=== PATIENT | male | born 1960 | race Caucasian/White ===

== ENCOUNTER 2018-07-08 11:12 | Emergency (ER) | payer OTHER ==
--- NOTE | 2018-07-08 12:21 | ED Physician Documentation ---
PD HPI LOWER EXT INJURY - Stated complaint Stated Complaint: RT LEG SWELLING - Chief complaint Chief Complaint: Ext Problem - History obtained from History obtained from: Patient - History of Present Illness PD HPI LOW EXT INJURY LOCATION: Right (He had a quick plane trip to [facility] on business and on he had a swollen painful slightly warm right leg up to the mid/lower hamstring. He denies any chest pain or trouble breathing. No history of DVT or PE.) Review of Systems Cardiac: denies: Chest pain / pressure Respiratory: denies: Dyspnea, Cough Musculoskeletal: reports: Extremity pain, Extremity swelling PD PAST MEDICAL HISTORY - Past Medical History Past Medical History: No - Past Surgical History Past Surgical History: No - Present Medications Home Medications: Ambulatory Orders Medication Instructions Recorded Confirmed Rivaroxaban [Xarelto] 15 mg PO BID #42 tablet 07/08/18 Zolpidem Tartrate [Ambien] 1 tab PO DAILY PM PRN 07/08/18 07/08/18 - Allergies Allergies/Adverse Reactions: Allergies Allergy/AdvReac Type Severity Reaction Status Date / Time No Known Drug Allergies Allergy Verified 07/08/18 11:29 - Social History Does the pt smoke?: No Smoking Status: Never smoker Does the pt drink ETOH?: Yes Does the pt have substance abuse?: No Substance Use and Type: Marijuana - Immunizations Immunizations are current?: Yes - POLST Patient has POLST: No PD ED PE NORMAL - Vitals Vital signs reviewed: Yes - General General: Alert and oriented X 3, No acute distress - Extremities Extremities: Other (He does have modest edema that is asymmetric of the right leg with some pitting to the ankle. Good range of motion, normal perfusion.) - Neuro Neuro: Alert and oriented X 3, Normal speech Results - Vitals Vitals: Vital Signs - 24 hr 07/08/18 11:26 Temperature 36.5 C Heart Rate 66 Respiratory 16 Rate Blood Pressure 132/86 H O2 Saturation 99 Oxygen O2 Source Room air - Labs Labs: Laboratory Tests 07/08/18 07/08/18 07/08/18 12:50 12:50 12:50 WBC 6.8 RBC 4.84 Hgb 13.8 L Hct 40.8 L MCV 84.3 MCH 28.6 MCHC 34.0 RDW 12.9 Plt Count 132 MPV 9.0 Neut # (Auto) 3.5 Lymph # (Auto) 2.0 Craven # (Auto) 0.8 Eos # (Auto) 0.4 Baso # (Auto) 0.1 Absolute Nucleated RBC 0.00 Nucleated RBC % 0.1 PT 11.9 INR 1.1 Sodium 136 Potassium 4.3 Chloride 101 Carbon Dioxide 28 Anion Gap 7.0 BUN 16 Creatinine 0.8 Estimated GFR (MDRD) 100 Glucose 101 H Calcium 9.1 - Rads (name of study) RLE duplex Radiology: EMP read contemporaneously (pos for DVT) PD MEDICAL DECISION MAKING - ED course ED course: 57-year-old gentleman with first DVT after flying. I discussed the case with the physician on-call for his who recommended a NOAC of my choice. - Sepsis Event Vital Signs: Vital Signs - 24 hr 07/08/18 11:26 Temperature 36.5 C Heart Rate 66 Respiratory 16 Rate Blood Pressure 132/86 H O2 Saturation 99 Oxygen O2 Source Room air Departure - Departure Disposition: 01 Home, Self Care Clinical Impression: Deep vein thrombosis Qualifiers: DVT location: lower extremity Affected thrombotic vein of extremity: popliteal Chronicity: acute Laterality: right Qualified Code(s): I82.431 - Acute embolism and thrombosis of right popliteal vein Condition: Good Record reviewed to determine appropriate education?: Yes Instructions: ED DVT Prescriptions: Rivaroxaban [Xarelto] 15 mg PO BID #42 tablet Comments: Call your doctor to arrange a follow-up appointment, make the next available appointment. In the interim, return anytime if worse or if new symptoms develop.
[2018-07-08 13:04] LABS: BASOPHILS # (AUTO) 0.1 10^3/uL (0.0-0.1); BASOPHILS % (AUTO) 1.3 %; EOSINOPHILS # (AUTO) 0.4 10^3/uL (0.0-0.7); EOSINOPHILS % (AUTO) 5.7 %; HGB - HEMOGLOBIN 13.8 g/dL (14.0-18.0); LYMPHOCYTES % (AUTO) 29.5 %; MEAN CORPUSCULAR HEMOGLOBIN 28.6 pg (27.0-31.0); MEAN CORPUSCULAR VOLUME 84.3 fL (80.0-94.0); MONOCYTES # (AUTO) 0.8 10^3/uL (0.0-1.0); MONOCYTES % (AUTO) 11.8 %; NEUTROPHILS # (AUTO) 3.5 10^3/uL (1.5-6.6); NEUTROPHILS % (AUTO) 51.7 %; PLT - PLATELET COUNT 132 10^3/uL (130-450); RED BLOOD COUNT 4.84 10^6/uL (4.70-6.10); RED CELL DISTRIBUTION WIDTH 12.9 % (12.0-15.0); WHITE BLOOD COUNT 6.8 x10^3/uL (4.8-10.8)
[2018-07-08 13:08] LABS: INR 1.1 (0.8-1.2); PT - PROTHROMBIN TIME 11.9 secs (9.9-12.6)
[2018-07-08 13:11] LABS: CALCIUM 9.1 mg/dL (8.5-10.3); CREATININE 0.8 mg/dL (0.6-1.2)
--- NOTE | 2018-07-08 13:39 | Ultrasound Report ---
Reason: RLE swelling Procedure Date: 07/08/2018 Accession Number: [id number] / [id number] Procedure: US - Duplex Ext Veins Right CPT Code: FULL RESULT: EXAM: RIGHT LOWER EXTREMITY VENOUS ULTRASOUND EXAM DATE: 07/08/2018 12:44 PM. CLINICAL HISTORY: RLE swelling. COMPARISON: None. TECHNIQUE: Real-time sonographic vascular imaging was performed by the car shakeout operator through the lower extremity utilizing both color-flow and Doppler spectral analysis. Multiple entry level marketing representative static images were saved for review. FINDINGS: Common Femoral Vein (CFV): Normal. CFV-GSV Junction: Normal. Profunda Femoral Vein (PFV): Normal. Femoral Vein (FV) Prox: Normal. Femoral Vein (FV) Mid: Normal. Femoral Vein (FV) Dist: Normal. Popliteal Vein: Normal. Posterior Tibial Veins: Normal. Peroneal Veins: Normal. Other: None. IMPRESSION: No evidence for deep venous thrombosis. [facility] CORRECTED REPORT: EXAM: RIGHT LOWER EXTREMITY VENOUS ULTRASOUND EXAM DATE: 07/08/2018 12:44 PM. CLINICAL HISTORY: RLE swelling. COMPARISON: None. TECHNIQUE: Real-time sonographic vascular imaging was performed by the car shakeout operator through the lower extremity utilizing both color-flow and Doppler spectral analysis. Multiple entry level marketing representative static images were saved for review. FINDINGS: Common Femoral Vein (CFV): Normal. CFV-GSV Junction: Normal. Profunda Femoral Vein (PFV): Normal. Femoral Vein (FV) Prox: Normal. Femoral Vein (FV) Mid: Positive for deep venous thrombosis. Femoral Vein (FV) Dist: Positive for deep venous thrombosis Popliteal Vein: Positive for deep venous thrombosis Posterior Tibial Veins: Positive for deep venous thrombosis Peroneal Veins: Positive for deep venous thrombosis Other: None. IMPRESSION: 1. Positive for deep venous thrombosis in the right lower extremity from the mid femoral vein to the peroneal and posterior tibial veins of the calf. These findings were communicated to Dr. Schafer on 07/08/2018 at 1412. This is a correction to the initial report. [facility]
[2018-07-08] MEDS ORDERED: RIVAROXABAN 15 MG TABLET PO STA (14:10)
[2018-07-08 14:31] VITALS: BP 130/80
--- NOTE | 2018-07-08 15:51 | ED Physician Documentation ---
ED Addendum - Addendum Addendum: 07/08/18 15:50 Took call from pharmacist, Brian is not covered by his insurance. Auth change to Eliquis, 10 mg p.o. twice a day for 7 days and then 5 mg p.o. twice a day for 21 days, 28 days worth total.
== END 2018-07-08 14:31 | disposition home or self-care (01) ==
LOC: ED 11:12
DX: I82.431 Acute embolism and thrombosis of right popliteal vein (principal)
CPT/HCPCS: 36415; 80048; 85025; 85610; 93971; 99283; A9270